=== PATIENT | male | born 1970 | race Hispanic/Latino ===

== ENCOUNTER 2022-01-05 07:37 | Day surgery (SDC) | payer BC, OTHER ==
[2022-01-02 14:48] LABS: Potassium 4.3 mmol/L (3.5-5.1)
--- NOTE | 2022-01-03 07:19 | EKG ---
Test Date: 2022-01-02 Test Time: 13:55:03 Electric Wheelchair Repairer: KAMERON MEASUREMENT RESULTS: Intervals: Rate: 58 KS: 150 QRSD: 98 QT: 440 QTc: 431 [place]: P: 48 KS: 150 QRS: 37 T: 63 INTERPRETIVE STATEMENTS: Sinus bradycardia Otherwise normal ECG No previous ECG available for comparison Electronically Signed On 01-03-22 07:17:27 CDT by Jacek Flores
[2022-01-05] MEDS: Ringers Lactate 1,000 ML IV ONE ×2 (08:22→09:39)
[2022-01-05] MEDS ORDERED: ACETAMINOPHEN 500 MG TAB ONE (08:36)
[2022-01-05] MEDS ORDERED: CELECOXIB 100 MG CAPSULE ONE (08:36)
[2022-01-05] MEDS: BUPIVACA 0.5%/EPI 0.0005%/PF 30 ML VIAL ONE ×2 (09:39→11:05)
[2022-01-05] MEDS: CEFAZOLIN SODIUM 1 GM/VIAL ONE ×2 (09:40→10:55)
[2022-01-05] MEDS ORDERED: SODIUM HYPOCHLORITE 0.25% 473 ML ONE (09:46)
[2022-01-05] MEDS ORDERED: ROCURONIUM 50 MG/5 ML VIAL IV ONE (09:51)
[2022-01-05] MEDS ORDERED: propofoL 200 MG/20 ML VIAL IV ONE (09:51)
[2022-01-05] MEDS ORDERED: MIDAZOLAM HCL 2 MG/2 ML INJ ONE ×2 (09:51→10:45)
[2022-01-05] MEDS ORDERED: FENTANYL CITR 100 MCG/2 ML ONE (09:51)
[2022-01-05] MEDS ORDERED: LIDOCAINE 1% MPF 5 ML VIAL ONE (09:51)
[2022-01-05] MEDS ORDERED: SUCCINYLCHOLINE 20 MG/ML (10 ML) IV ONE (10:19)
[2022-01-05] MEDS ORDERED: NS 0.9% VIAL 10 ML ONE (10:47)
[2022-01-05] MEDS ORDERED: dexAMETHasone 10 MG/ML VIAL ONE (11:06)
[2022-01-05] MEDS ORDERED: KETOROLAC 30 MG/ML INJ ONE (11:07)
[2022-01-05] MEDS ORDERED: ONDANSETRON 4 MG/2 ML VIAL ONE (11:07)
[2022-01-05] MEDS ORDERED: GLYCOPYRROLATE 0.2 MG/ML SYR ONE (11:08)
[2022-01-05] MEDS ORDERED: NEOSTIGMINE 1 MG/ML -10 ML VIAL ONE (11:34)
--- NOTE | 2022-01-05 11:50 | P.OP ---
Preoperative diagnosis: 4 Sebaceous Back Cyst, one skin lesion Postoperative diagnosis: 4 Sebaceous Back Cyst, one skin lesion Primary procedure: Wide Excision of 4 Sebaceous Back Cyst, one skin lesion Anesthesia: GETA + Local Estimated blood loss: <5cc Specimen: 4 Sebaceous Back Cyst, one skin lesion, cultures Findings: one infected sebacous cyst, 3 Recurrent, one skin lesion ~1cm Complications: None Transferred to: Recovery Room Condition: Good (2046)
[2022-01-05 12:18] VITALS: O2SAT 100
[2022-01-05 13:25] VITALS: BP 122/79; TEMP 96
--- NOTE | 2022-01-05 22:48 | OP ---
Date of Procedure: 01/05/2022 Surgeon: Calixto Morales MD, Preoperative Diagnosis: Four sebaceous cysts of the back and 1 irregular hyperpigmented skin lesion of the upper central back. Postoperative Diagnosis: Four sebaceous cysts of the back and 1 irregular hyperpigmented skin lesion of the upper central back. Procedure Performed: Wide local excision of 4 sebaceous cysts of the back and 1 skin lesion of the l ower neck. Anesthesia: General endotracheal plus local with 0.25% Marcaine. Estimated Blood Loss: Less 5 mL. Specimen: Four sebaceous back cysts, 1 skin lesion and culture sent for both aerobic and anaerobic s peciation. Findings: One infected lower central back skin cyst consistent with a ruptured sebaceous cyst with a bscess. Three approximately 3.5 to 4 cm recurrent sebaceous cysts of the left upper, left lower, and right lateral scapular back and 1 hyperpigmented skin lesion approximately 1 cm at the base of the n julita. Complications: None. Disposition: The patient was transferred to recovery room in good condition. Procedure In Detail: After informed consent was obtained, the patient was prepped and draped in the usual sterile fashion. After adequate anesthesia was achieved, I anesthetized the area of the lower back skin cyst first. After appropriate anesthetizing the skin, I then moved to anesthetize all the other skin cysts as described above with 0.5% Marcaine with epinephrine. I then made a linear incisi on on 3 of the 4 skin cysts removing the sebaceous material and skin cyst with its capsule circumfere ntially around from the left lateral, left lower, and right lateral skin sebaceous cysts, which were approximately 3 to 4 cm in size around down to the fascia overlying the muscle. These were taken out using a combination of electrocautery and blunt dissection, sent off for pathologic examination. Th e cavities were all irrigated and hemostasis was achieved with electrocautery. The wounds were then reapproximated using 2-0 nylon suture and a sterile dressing was placed over top. I turned my attent ion to the infected lower central sebaceous cyst. I made a curvilinear incision around the exit site where the infection tissue was draining. I took the ellipse of skin after making a cut with a 15 bl cruz down to subcutaneous tissues. In a similar fashion, I removed the infected capsule after sending cultures for both aerobic and anaerobic speciation. The abscess was completely drained along with a ll sebaceous material and sent off for pathologic examination. The cavity was then copiously irrigat ed and hemostasis was achieved with electrocautery. The wound was then packed with Dakin soaked Kerl ix and a sterile dressing placed over top. I then turned my attention to the upper skin hyperpigment ed lesion at the base of neck, which is approximately 1 cm in size. I used a 10 blade to shave this skin lesion off down into the dermal plane and sent it off for pathologic examination. Hemostasis wa s achieved with electrocautery at this point and a sterile dressing was placed over top. The patient tolerated the procedure well without any evidence of complication and transferred to PACU in good co ndition. All counts were correct at the end of the case. LISHA/HANNAH Voice ID: [id number] Report ID: [id number]
== END 2022-01-05 13:32 | disposition home or self-care (01) ==
LOC: OR 07:37
PROVIDERS: ATTEND Surgery
PROC: 0JB70ZZ Excision of Back Subcutaneous Tissue and Fascia, Open Approach (ICD-10-PCS; principal; 2022-01-05 09:45)
DX: D04.5 Carcinoma in situ of skin of trunk (principal); L72.0 Epidermal cyst; L81.9 Disorder of pigmentation, unspecified; Z20.822 Contact with and (suspected) exposure to COVID-19
CPT/HCPCS: 11404 ×3; 11421; 93005; 87070; 80048; 36415; 87205 ×2; 88304; 88305; 87075; 87077; 87186; U0003; J2704; J2710; J0330; J2250 ×2; J3010; J1100; J7120; J2405; J0690

== ENCOUNTER 2022-01-16 08:09 | Emergency (ER) | payer OTHER ==
[2022-01-16 08:41] LABS: Absolute Lymphocytes (CBC) 1.2 K/uL (0.7-4.9); Hematocrit 42.4 % (39.6-49.0); Lymphocytes % 9.9 % (15.3-44.8); MCV 87.8 fL (80-100); MPV 8.2 fL (7.6-11.3); RBC Red Blood Cell Count 4.82 M/uL (4.33-5.43)
[2022-01-16 08:59] LABS: Albumin 3.8 g/dL (3.4-5.0); Bilirubin Total 0.7 mg/dL (0.2-1.0); Potassium 4.1 mmol/L (3.5-5.1); Protein, Total 7.3 g/dL (6.4-8.2)
--- NOTE | 2022-01-16 09:16 | RAD REPORT ---
EXAM DESCRIPTION: CT - Stone Protocol - 01/16/2022 8:52 am CLINICAL HISTORY: flank pain COMPARISON: No comparisons TECHNIQUE: Axial 3 mm thick images were obtained without oral or IV contrast. The [id number] span s the entirety of the system including uppermost abdomen and lung bases. All CT scans are performed using dose optimization technique as appropriate and may include automated exposure control or mA/KV adjustment according to patient size. FINDINGS: Moderate severity hydronephrosis of the left renal pelvis and calices noted secondary to a 7 mm UPJ stone. A 2 mm nonobstructing calyx calcifications seen anterior mid left kidney. No right-s ided hydronephrosis. No right-sided calculi. There is stranding and edema adjacent to the dilated lef t pelvis and calices. Remainder of the left ureter is decompressed with no additional stones. No susp icious renal masses. Isodense masses and pyelonephritis are not excluded on a stone protocol CT scan. No significant adrenal finding. Partially filled urinary bladder shows no suspicious finding. Contra cted state accentuates wall thickness. Imaged portions of the liver, spleen and pancreas show no suspicious findings on non-contrast imaging . No gallbladder or biliary tree abnormality identified. No suspicious bowel findings. Appendix is normal. No active bowel process seen. A very small 13 mm fat only umbilical hernia present. No abdominal wall hematoma or mass. No intraper itoneal free air, free fluid or pneumatosis. In the midline fatty tissues of the back approximately T7 level there is a 3 centimeter area of decre ased attenuation some of which has air attenuation. Deeper musculature is uninvolved. No paraspinal c omponent seen. It is unknown if the patient had medication administered or treatment. This may be a k nown wound. This needs correlation clinically. No significant bony abnormality. IMPRESSION: Left-side moderate hydronephrosis of the pelvis and calices secondary to a 7 mm UPJ ston e. A 3 centimeter area of air and decreased attenuation seen in the subcutaneous fatty tissues midline o f the back approximately T7 level. This is only partially imaged on this study. Correlation is needed with any history of wound, medication injection or other possible etiology. Isodense masses and pyelonephritis are not excluded on stone protocol technique.
[2022-01-16] MEDS ORDERED: TAMSULOSIN 0.4 MG SR CAP ONE (09:43)
[2022-01-16] MEDS ORDERED: KETOROLAC 30 MG/ML INJ ONE (09:43)
[2022-01-16] MEDS ORDERED: CEFTRIAXONE 1000 MG/VIAL ONE (09:43)
[2022-01-16] MEDS ORDERED: ONDANSETRON 4 MG/2 ML VIAL ONE (09:44)
[2022-01-16] MEDS ORDERED: Magnesium Sulfate 2gm IVPB 2 G/50 ML BAG IV ONE (09:44)
[2022-01-16 10:39] LABS: Urine Blood 1+ (Negative); Urine Glucose Negative (Negative); Urine Protein Negative (Negative); Urine Specific Gravity 1.025 (1.005-1.030); Urine pH 5.5 (5.0-7.0)
--- NOTE | 2022-01-16 14:20 | EDPHYS ---
Physician Documentation [facility] Name: Boy Rivera Age: 52 yrs Sex: Male : 1970 Arrival Date: 01/16/2022 Time: 08:12 Bed 17 Private MD: Neville Man B ED Physician Juan Nicole HPI: 01/16 10:46 This 52 yrs old Male presents to ER via Ambulatory with complaints of Flank kb Pain. 10:46 The patient complains of pain in the left flank. The pain radiates to the abdomen. kb Onset: The symptoms/episode began/occurred 2 day(s) ago. Modifying factors: The symptoms are alleviated by nothing. the symptoms are aggravated by nothing. Associated signs and symptoms: Pertinent positives: vomiting. Severity of pain: At its worst the pain was moderate in the emergency department the pain has improved. The patient has not experienced similar symptoms in the past. The patient has not recently seen a physician. Pt reports left flank pain that started 2 days ago. States the pain is radiating to LLQ and scrotum now. Vomited x1 last night. Pt has no CVA tenderness, no tenderness upon palpation of abd. . Historical: - Allergies: 08:38 No Known Allergies; sorto - Home Meds: 08:38 None [Active]; sorto - PMHx: 08:38 None; sorto - PSHx: 08:38 None; sorto - Immunization history:: Adult Immunizations up to date. - Social history:: Smoking status: Patient denies any tobacco usage or history of. ROS: 10:45 Constitutional: Negative for fever, chills, and weight loss. kb 10:45 Abdomen/GI: Positive for constipation. 10:45 : Positive for flank pain. 10:45 All other systems are negative. Exam: 10:46 Constitutional: This is a well developed, well nourished patient who is awake, alert, kb and in no acute distress. Head/Face: Normocephalic, atraumatic. ENT: Moist Mucous membranes Cardiovascular: Regular rate and rhythm with a normal S1 and S2. No gallops, murmurs, or rubs. No pulse deficits. Respiratory: Respirations even and unlabored. No increased work of breathing. Talking in full sentences Abdomen/GI: Soft, non-tender. No distention Back: No spinal tenderness. No costovertebral tenderness. Full range of motion. Skin: Warm, dry with normal turgor. Normal color. MS/ Extremity: Pulses equal, no cyanosis. Neurovascular intact. Full, normal range of motion. Neuro: Awake and alert, GCS 15, oriented to person, place, time, and situation. Moves all extremities. Normal gait. Psych: Awake, alert, with orientation to person, place and time. Behavior, mood, and affect are within normal limits. Vital Signs: 08:17 BP 125 / 72; Pulse 73; Resp 16; Temp 97.1; Pulse Ox 99% on R/A; iw MDM: 08:15 Patient medically screened. kb 09:52 Data reviewed: vital signs, nurses notes. Data interpreted: Pulse oximetry: on room air kb is 99 %. Interpretation: normal. Physician consultation: Gareth De Souza MD was called at 09:52, voicemail left. I called OR, Dr De Souza is in surgery, message left with OR to have Dr De Souza call ER. 11:41 ED course: Dr De Souza still in procedure in OR. Awaiting callback. . kb 13:51 ED course: Still awaiting callback. Pt updated and is still painfree. . kb 01/16 08:21 Order name: CBC with Diff; Complete Time: 08:48 kb 01/16 08:21 Order name: CMP; Complete Time: 09:02 kb 01/16 08:21 Order name: Lipase; Complete Time: 09:02 kb 01/16 08:21 Order name: CT Stone Protocol; Complete Time: 09:17 kb 01/16 10:40 Order name: Urine Dipstick-Ancillary; Complete Time: 10:42 EDMS 01/16 08:21 Order name: IV Saline Lock; Complete Time: 08:40 kb 01/16 08:21 Order name: Labs collected and sent; Complete Time: 08:40 kb 01/16 08:21 Order name: Urine Dipstick-Ancillary (obtain specimen); Complete Time: 10:47 kb 01/16 14:11 Order name: EKG; Complete Time: 14:12 kb 01/16 14:11 Order name: EKG - Nurse/Tech kb Administered Medications: 09:52 Drug: Flomax (tamsulosin) 0.4 mg Route: PO; sorto 09:53 Follow up: Response: No adverse reaction sorto 09:52 Drug: Magnesium Sulfate 1 grams Route: IVPB; Infused Over: 1 hrs; Site: right hand; sorto 09:53 Drug: Zofran (Ondansetron) 4 mg Route: IVP; Site: right hand; sorto 09:53 Follow up: Response: No adverse reaction sorto 09:53 Drug: Ketorolac 15 mg Route: IVP; Site: right hand; sorto 09:53 Follow up: Response: No adverse reaction sorto 09:53 Drug: Rocephin (cefTRIAXone) 1 grams Route: IV; Rate: calculated rate; Site: right hand; Disposition Summary: 01/16/22 14:19 Discharge Ordered Location: Home jl9 Condition: Stable jl9 Diagnosis - Calculus of kidney with calculus of ureter jl9 Followup: jl9 - With: Gareth De Souza MD - When: Tomorrow - Reason: Recheck today's complaints, Continuance of care, Re-evaluation by your physician Discharge Instructions: - Discharge Summary Sheet jl9 - Kidney Stones, Ziky-ci-Hsqr jl9 Forms: - Medication Reconciliation Form jl9 - Thank You Letter jl9 - Antibiotic Education jl9 - Prescription Opioid Use jl9 Prescriptions: - Flomax 0.4 mg Oral capsule - take 1 capsule by ORAL route once daily 1/2 hour following the same meal each jl9 day; 10 capsule; Refills: 0, Product Selection Permitted - Cipro 500 mg Oral Tablet - take 1 tablet by ORAL route every 12 hours for 7 days; 14 tablet; Refills: 0, jl9 Product Selection Permitted - Zofran 4 mg Oral Tablet - take 1 tablet by ORAL route every 6 hours As needed; 20 tablet; Refills: 0, kb Product Selection Permitted - Diclofenac Sodium 75 mg Oral tablet,delayed release (DR/EC) - take 1 tablet by ORAL route 2 times per day As needed; 30 tablet; Refills: 0, kb Product Selection Permitted Signatures: Dispatcher [employer] Rafaela Hull, BELEM BUTTERFIELD-Loli Ross RN RN ha Linares, John jl9
--- NOTE | 2022-01-16 14:20 | ER ---
Nurse's Notes [facility] Name: Boy Rivera Age: 52 yrs Sex: Male : 1970 Arrival Date: 01/16/2022 Time: 08:12 Bed 17 Private MD: Neville Man B Diagnosis: Calculus of kidney with calculus of ureter Presentation: 01/16 08:17 Chief complaint: Chief complaint: Patient states: left back and abd pain down into iw scrotum that started two days ago, vomited once. Coronavirus screen: At this time, the client does not indicate any symptoms associated with coronavirus-19. Ebola Screen: Patient negative for fever greater than or equal to 101.5 degrees Fahrenheit, and additional compatible Ebola Virus Disease symptoms Patient denies exposure to infectious person. Patient denies travel to an Ebola-affected area in the 21 days before illness onset. No symptoms or risks identified at this time. Initial Sepsis Screen: Does the patient meet any 2 criteria? No. Patient's initial sepsis screen is negative. Does the patient have a suspected source of infection? No. Patient's initial sepsis screen is negative. Risk Assessment: Do you want to hurt yourself or someone else? Patient reports no desire to harm self or others. 08:17 Method Of Arrival: Ambulatory iw 08:17 Acuity: SONIA 3 iw 08:39 Onset of symptoms was January 14, 2022. sorto Triage Assessment: 08:39 General: Appears in no apparent distress. Behavior is calm, cooperative. sorto Historical: - Allergies: 08:38 No Known Allergies; sorto - Home Meds: 08:38 None [Active]; sorto - PMHx: 08:38 None; sorto - PSHx: 08:38 None; sorto - Immunization history:: Adult Immunizations up to date. - Social history:: Smoking status: Patient denies any tobacco usage or history of. Screenin:39 Abuse screen: Denies threats or abuse. Denies injuries from another. Nutritional sorto screening: No deficits noted. Tuberculosis screening: No symptoms or risk factors identified. Fall Risk None identified. Assessment: 08:38 Pain: Complains of pain in abdomen. GI: Bowel sounds present X 4 quads. Abd is soft and sorto non tender X 4 quads. Reports nausea, Pain is 7 out of 10 on a pain scale. vomiting. Vital Signs: 08:17 BP 125 / 72; Pulse 73; Resp 16; Temp 97.1; Pulse Ox 99% on R/A; iw ED Course: 08:12 Patient arrived in ED. mr 08:12 Neville Man MD is Private Physician. mr 08:15 Rafaela Vergara FNP-C [facility]. kb 08:15 Juan Nicole DO is Attending Physician. kb 08:17 Triage completed. iw 08:18 Arm band placed on. iw 08:39 Patient has correct armband on for positive identification. Bed in low position. sorto 08:39 No provider procedures requiring assistance completed. sorto 08:40 Loli Glasgow, RAMONITA is Primary Nurse. sorto 08:54 CT Stone Protocol In Process Unspecified. EDMS 14:17 Gareth De Souza MD is Referral Physician. jl9 14:45 IV discontinued, intact, Pressure dressing applied. sorto Administered Medications: 09:52 Drug: Flomax (tamsulosin) 0.4 mg Route: PO; sorto 09:53 Follow up: Response: No adverse reaction sorto 09:52 Drug: Magnesium Sulfate 1 grams Route: IVPB; Infused Over: 1 hrs; Site: right hand; sorto 09:53 Drug: Zofran (Ondansetron) 4 mg Route: IVP; Site: right hand; sorto 09:53 Follow up: Response: No adverse reaction sorto 09:53 Drug: Ketorolac 15 mg Route: IVP; Site: right hand; sorto 09:53 Follow up: Response: No adverse reaction sorto 09:53 Drug: Rocephin (cefTRIAXone) 1 grams Route: IV; Rate: calculated rate; Site: right hand;sorto Medication: 08:40 VIS not applicable for this client. sorto Outcome: 14:19 Discharge ordered by . jl9 14:44 Discharged to home ambulatory, with family. sorto 14:44 Condition: good 14:44 Discharge instructions given to patient, Prescriptions given X 4. 14:45 Patient left the ED. sorto Signatures: Dispatcher [employer] EDMS Rafaela Vergara FNP-C FNP-Ckb Britney Naranjo Omayra Adkins RN RN Loli Glasgow RN RN ha Linares, John jl9 Corrections: (The following items were deleted from the chart) 08:19 08:17 Pulse 73bpm; Resp 16bpm; Pulse Ox 99% RA; Temp 97.1F; iw iw 08: 08:17 Chief complaint: iw iw
--- NOTE | 2022-01-16 14:25 | P.CNS ---
Date of Consult: 01/16/22 cc: Left flank pain HPI: 52-year-old gentleman presented to the emergency department with progressively worsening 3-day history of left flank pain. Overnight, he developed nausea and vomiting as well as some chills but no documented fevers. The pain had begun to radiate into his left hemiscrotum. He is unaware of any pre-existing CKD. He has never had kidney stones before, but his has had several. He believes he drinks a lot of water. Past medical history: Anxiety disorder/depression PSHx: excision of back cysts NKDA Examination: 125 / 72; Pulse 73; Resp 16; Temp 97.1; Pulse Ox 99% on R/A Well-appearing, well-developed, well-nourished, no acute distress Alert, awake, oriented x3 No dyspnea or sign of respiratory distress No cervical/supraclavicular adenopathy or thyromegaly Abdomen soft, nontender, nondistended Sitting upright in a stretcher Comfortable and well-appearing Review of CT stone protocol today: 7 mm proximal ureterolithiasis with hydroureteronephrosis and two 2mm nephrolithiasis within the left kidney and solitary calcification in the right kidney. No significant perinephric stranding or sign of forniceal rupture. Labs: WBC 12.1, creatinine 1.54 Assessment and recommendation: 52-year-old gentleman with no significant past medical history with 7 mm proximal left nephroureterolithiasis, left flank pain and signs of BRITTANY. -Recommended stent placement in a timely fashion, but because he had just recently eaten several items within the last 2 hours, it would be ill advised to proceed today, and the urgency is not that great. We will arrange for operative evaluation with cystoscopy and left ureteral stent placement within the next 2 to 3 days. -EKG
[2022-01-16 15:08] VITALS: BP 125/72; TEMP 97.1; O2SAT 99
== END 2022-01-16 14:45 | disposition home or self-care (01) ==
LOC: ER 08:09
DX: N20.2 Calculus of kidney with calculus of ureter (principal)
CPT/HCPCS: 85025; 36415; 81003; 83690; 80053; 76377; 74176; J3475; J2405

== ENCOUNTER 2022-01-18 06:17 | Day surgery (SDC) | payer OTHER ==
[2022-01-18] MEDS ORDERED: Ringers Lactate 1,000 ML IV ONE (07:02)
[2022-01-18 07:19] LABS: SARS-CoV-2 Antigen Rapid Res Negative (Negative)
[2022-01-18] MEDS ORDERED: MIDAZOLAM HCL 2 MG/2 ML INJ ONE (08:41)
[2022-01-18] MEDS ORDERED: LIDOCAINE 1% MPF 5 ML VIAL ONE (08:41)
[2022-01-18] MEDS: CEFAZOLIN 2 GM IN 0.9% NACL 2 GM/100 ML BAG ONE ×2 (08:41→08:47)
[2022-01-18] MEDS ORDERED: FENTANYL CITR 100 MCG/2 ML ONE (08:41)
[2022-01-18] MEDS ORDERED: propofoL 200 MG/20 ML VIAL IV ONE (08:41)
[2022-01-18] MEDS ORDERED: ONDANSETRON 4 MG/2 ML VIAL ONE (08:42)
--- NOTE | 2022-01-18 08:50 | P.OP ---
Preoperative diagnosis: Ureterolithiasis Postoperative diagnosis: Ureterolithiasis Primary procedure: Cystoscopy with left ureteral stent placement Secondary procedure: Left retrograde pyelography Anesthesia: LMA general Estimated blood loss: Negligible Findings: 7 mm proximal ureteral obstructing calculus Operative Technique: Indication for procedure: This is a 52-year-old gentleman with no significant past medical history other than underlying psychiatric issue who presents as a first-time stone former with a 7 mm proximal ureteral obstructing calculus as well as acute kidney injury. He presented to the emergency department 2 days ago with significant flank pain. Management of the obstruction was recommended to prevent further renal function decline with later plan to return for operative intervention to definitively manage the stone. Procedure note: The patient was consented in the preoperative holding area before being transferred to the operative suite where general anesthesia was induced using an LMA. He was given Ancef 2 g IV antimicrobial prophylaxis and pneumoboots were provided for DVT prophylaxis. He was placed in the lithotomy position, padded and secured to the table appropriately. His genitalia was prepped using Hibiclens and draped in standard fashion. The case was begun using a 22 Chadian rigid cystoscope to traverse the urethra and into the bladder with ease. The bladder was surveyed, and there were no papillary mucosal lesions, foreign bodies or stones. The left ureteral orifice was orthotopic in location and cannulated using the tip of a 5 Chadian ureteral access catheter. A retrograde pyelogram was then performed. Left retrograde pyelography: Using a 70: 30 mixture of Omnipaque and saline, the contrast mixture was injected via the 5 Chadian ureteral access catheter and did propagate up a relatively nondilated mid and distal ureter before entering the renal pelvis and calyces where there was mild to moderate pelviectasis without caliectasis. The stone was radiolucent. As a result, I observed for the next several minutes with intermittent spot fluoroscopic imagery and noted delayed propagation of contrast from the renal pelvis indicative of a partial degree of obstruction. I was then able to pass a sensor wire via the 5 Chadian ureteral access catheter up the distal ureter and beyond the point of obstruction coiling it within the upper pole. Over the sensor wire, I then placed a 6 Chadian by 26 cm double-J left ureteral stent with a coil observed fluoroscopically in the renal pelvis/upper pole and an additional coil formed cystoscopically within his bladder. His bladder was then decompressed of fluid and urine, and the case completed. I took him out of lithotomy position. He was awakened from general anesthesia, transferred to a stretcher, and then transferred to the recovery room in good condition. Discharge disposition: He will be scheduled to return for definitive operative management of his stone via ureteroscopy with laser lithotripsy tentatively scheduled 02/13/2022. Complications: None Drain(s): Other Implants: Ureteral stent Transferred to: Recovery Room Condition: Good
[2022-01-18] MEDS ORDERED: CODEINE 30MG/APAP 300MG TAB PO PRN (09:14)
[2022-01-18] MEDS ORDERED: PHENAZOPYRIDINE 100MG TAB PO ONE ×2 (09:14→09:57)
--- NOTE | 2022-01-18 09:30 | RAD REPORT ---
EXAM DESCRIPTION: RAD - Urethrocystogrphy Retrograde - 01/18/2022 9:13 am FINDINGS: There were 8 fluoroscopic portable KUB images obtained during fluoroscopic assisted placem ent of a left ureteral stent. No suspicious or unexpected finding. Fluoro time was 16 seconds. Cumulative dose was 7.4 mGy.
[2022-01-18] MEDS ORDERED: CODEINE 30MG/APAP 300MG TAB ONE (09:56)
[2022-01-18 10:14] VITALS: BP 109/70; TEMP 96.7; O2SAT 98
== END 2022-01-18 10:10 | disposition home or self-care (01) ==
LOC: OR 06:17
PROVIDERS: ATTEND Urology
PROC: 0T778DZ Dilation of Left Ureter with Intraluminal Device, Via Natural or Artificial Opening Endoscopic (ICD-10-PCS; principal; 2022-01-18 08:15)
DX: N20.1 Calculus of ureter (principal); Z20.822 Contact with and (suspected) exposure to COVID-19; R10.9 Unspecified abdominal pain; F41.8 Other specified anxiety disorders
CPT/HCPCS: 36415; 51610; 74450; 87811; J0690; J2250; J2405; J2704; J3010; J7120

== ENCOUNTER 2022-02-13 06:06 | Day surgery (SDC) | payer OTHER ==
[2022-02-08 15:37] LABS: SARS-CoV-2 Antigen Rapid Res Negative (Negative)
[2022-02-13] MEDS ORDERED: Ringers Lactate 1,000 ML IV ONE (06:46)
[2022-02-13] MEDS ORDERED: Gentamicin Inj 240 MG in NA CHLORIDE 0.9% 100 ML IV ONE (07:00)
[2022-02-13] MEDS ORDERED: AMPICILLIN SODIUM 2 GM in NA CHLORIDE 0.9% 100 ML IVPB ONE (07:00)
[2022-02-13] MEDS ORDERED: ROCURONIUM 50 MG/5 ML VIAL IV ONE (07:09)
[2022-02-13] MEDS ORDERED: MIDAZOLAM HCL 2 MG/2 ML INJ ONE (07:09)
[2022-02-13] MEDS ORDERED: LIDOCAINE 1% MPF 5 ML VIAL ONE (07:09)
[2022-02-13] MEDS ORDERED: propofoL 200 MG/20 ML VIAL IV ONE (07:09)
[2022-02-13] MEDS ORDERED: ONDANSETRON 4 MG/2 ML VIAL ONE (07:11)
[2022-02-13] MEDS ORDERED: FENTANYL CITR 100 MCG/2 ML ONE (07:12)
[2022-02-13] MEDS ORDERED: dexAMETHasone 10 MG/ML VIAL ONE (08:03)
[2022-02-13] MEDS ORDERED: GLYCOPYRROLATE 0.2 MG/ML SYR ONE (08:33)
[2022-02-13] MEDS ORDERED: NEOSTIGMINE 1 MG/ML -10 ML VIAL ONE (08:44)
--- NOTE | 2022-02-13 09:00 | OP ---
Surgeon: CINTHIA HERNANDEZ Preoperative Diagnoses: 1.A 7 mm left ureterolithiasis. 2.Status post left ureteral stent placement. Postoperative Diagnoses: 1.A 7 mm left ureterolithiasis. 2.Status post left ureteral stent placement. 3.Meatal stenosis. Principal Procedures: 1.Left ureteroscopy with laser lithotripsy and stent exchange. 2.Meatal dilation using sounds. Indication For Procedure: Mr. Rivera initially presented via the emergency department with obstruct kolton left ureterolithiasis. He had flank pain associated with nausea and vomiting as well as some chi lls with no documented fevers and thus because of signs of acute kidney injury, he had a stent placed . He presents today for definitive management of the stone. Procedure In Detail: The patient was consented in the preoperative holding area before being transfe rred to operative suite where general anesthesia was induced. He was given ampicillin and gentamicin 2-3 mg/kg IV antimicrobial prophylaxis and pneumo boots were provided for DVT prophylaxis. He was p laced in the lithotomy position, padded and secured to the table appropriately. His genitalia were p repped using Hibiclens and he was draped in standard fashion. The case was begun using urethral soun ds to dilate the meatus and fossa navicularis to 28-Spanish because it would not permit access with a 22-Spanish rigid cystoscope. After successful dilation, I was then able to pass the scope via the ure thra into his bladder with ease. The stent was noted to emanate from the left ureteral orifice and w as grasped using an alligator grasper while his bladder was decompressed of urine and fluid. I then delivered the tip of the stent to the meatus leaving the proximal end of the stent in the mid ureter as evidenced fluoroscopically. I was then able to navigate a Sensor wire via the stent into the puta tive upper pole of the kidney with a coil observed fluoroscopically. Over the wire after removing th e stent, I then passed a dual-lumen catheter into the ureteral orifice and distal ureter. A retrogra de pyelogram was then performed. Left retrograde pyelography: Using a 70:30 mixture of Omnipaque and saline, contrast was injected via the second lumen of the dual -lumen catheter confirming the appropriate intraluminal location of the wire and delineating the julia rosemarie of the kidney. I thus allowed the distal ureter and ureteral orifice to dilate 4 minutes before removing the dual-lumen catheter and utilizing a semi-rigid ureteroscope to perform direct vision aminta i-rigid ureteroscopy into the distal ureter. I was able to survey into the mid and into the proximal ureter, but did not encounter the stone previously located there. I thus passed a Bentson guidewire under direct vision into the upper pole of the kidney as evidenced fluoroscopically. I removed the semi-rigid ureteroscope and passed over the Bentson guidewire a flexible ureteroscope until it encoun tered a point of obstruction at the ureteropelvic junction. Likely this was an obstruction from prio r stone impaction. Because I could not navigate the flexible ureteroscope beyond the point of obstru ction even using pressurized irrigation, I passed a Super Stiff wire via the flexible ureteroscope an d under direct vision through the hiatus within the ureteral lumen at the UPJ and observed the wire c oil fluoroscopically in the upper pole of the kidney alongside the indwelling safety wire. Using the Super Stiff wire, I was then able to navigate the flexible ureteroscope all the way into the upper p ole of the kidney successfully. I was then able to survey the calyces of the kidney using antegrade injected contrast to confirm each of the calyces of this complex calyceal system with narrow infundib ulum each calyx had been observed. I encountered the stone in the mid lower pole calyx and utilizing a 272 nm laser fiber and power setting of 1.0 joules and 10-15 hertz, I was quickly able to fragment the stone into dust smaller than 1 mm. I then surveyed the remainder of the calyces again and back into the renal pelvis before surveying down the proximal into the mid and distal ureter before removi ng the ureteroscope. I then back-loaded the cystoscope over the indwelling safety wire and under dir ect vision passed a 6-Spanish by 26 cm double-J ureteral stent with a coil observed fluoroscopically i n the upper pole and 1 cystoscopically formed within the bladder. I then decompressed his bladder of fluid and urine, and the patient was taken out of the lithotomy position. He was awakened from gene ral anesthesia, transferred to a stretcher, and then transferred to the recovery room in good conditi on. Complications: None. Discharge Disposition: Given the UPJ obstruction noted likely from impaction of the stone, I would r ecommend at least 2-4 weeks of stenting before the stent is removed in the office. LUZ/MODL Voice ID: [id number] Report ID: [id number]
[2022-02-13] MEDS ORDERED: PHENAZOPYRIDINE 100MG TAB PO ONE ×2 (09:02→09:46)
[2022-02-13] MEDS ORDERED: HYDROCODONE/APAP 5/325 MG TAB PO PRN (09:02)
[2022-02-13 09:10] VITALS: TEMP 97
--- NOTE | 2022-02-13 09:21 | RAD REPORT ---
EXAM DESCRIPTION: RAD - Urethrocystogrphy Retrograde - 02/13/2022 9:12 am FINDINGS: There were 17 portable fluoroscopic KUB images obtained during fluoroscopic assisted place ment of a left ureteral stent. No suspicious or unexpected finding. Fluoro time was 30 seconds.
[2022-02-13 10:24] VITALS: BP 123/88; O2SAT 98
== END 2022-02-13 10:10 | disposition home or self-care (01) ==
LOC: OR 06:06
PROVIDERS: ATTEND Urology
PROC: 0T778DZ Dilation of Left Ureter with Intraluminal Device, Via Natural or Artificial Opening Endoscopic (ICD-10-PCS; 2022-02-13)
PROC: 0TF78ZZ Fragmentation in Left Ureter, Via Natural or Artificial Opening Endoscopic (ICD-10-PCS; principal; 2022-02-13 07:30)
DX: N20.1 Calculus of ureter (principal); Z20.822 Contact with and (suspected) exposure to COVID-19; F41.8 Other specified anxiety disorders
CPT/HCPCS: 87088; 87086; 36415; 85610; 74450; 51610; 87811; 52356; J2704; J2710; J1580; J2250; J3010; J1100; J7120; J2405; J0290